=== PATIENT | male | born 1965 | race Caucasian/White ===

== ENCOUNTER 2023-10-26 14:47 | Outpatient (CLI) | payer MEDICARE, MEDICAID | END 2023-10-26 23:59 | disposition home or self-care (01) | LOC: RAD 14:47 | PROVIDERS: ATTEND Family Medicine | DX: Z12.2 Encounter for screening for malignant neoplasm of respiratory organs (principal); J30.9 Allergic rhinitis, unspecified; R73.03 Prediabetes; I25.10 Atherosclerotic heart disease of native coronary artery without angina pectoris; Z90.49 Acquired absence of other specified parts of digestive tract; Z87.891 Personal history of nicotine dependence | CPT/HCPCS: 71271 ==

== ENCOUNTER 2025-01-06 14:34 | Emergency (ER) | payer MEDICARE, MEDICAID ==
[~2025-01-06] VITALS: Ht 179.1 cm; Wt 98.2 kg
[2025-01-06 14:44] VITALS: TEMP 98
--- NOTE | 2025-01-06 14:52 | ELECTROCARDIOGRAPH REPORT ---
[facility] Test Date: 2025-01-06 Test Time: 14:51:00 Pat Name: KHADRA PRATER Department: [facility]- Patient ID: [facility]-[id number] Room: Gender: M [facility]: : 1965 Requested By: PRAVEEN BROWN Order Number: [id number] Reading MD: Measurements Intervals [place] Rate: 75 P: 58 IA: 198 QRS: 60 QRSD: 96 T: 42 QT: 358 QTc: 400 Interpretive Statements Sinus rhythm Please click the below link to view image of tracing.
--- NOTE | 2025-01-06 15:11 | RADIOLOGY REPORT ---
CHEST RADIOGRAPH Indication: CP Technique: DI CHEST,SINGLE VIEW Comparison: None FINDINGS: The cardiac silhouette is unremarkable. The lungs demonstrate no pulmonary airspace consolidation. The pulmonary vasculature is unremarkable. There is no pleural effusion. There is no pneumothorax. IMPRESSION: No pulmonary airspace consolidation.
[2025-01-06 15:35] LABS: MEAN PLATELET VOLUME 7.7 FL (7.4-10.4); RED CELL DISTRIBUTION WIDTH 12.9 % (11.5-14.5)
[2025-01-06 15:49] LABS: CREATININE 0.92 MG/DL (0.60-1.10); TOTAL CARBON DIOXIDE 28.5 MMOL/L (24-32); eCRCL 91 ML/MIN; eGFR 84 ML/MIN
[2025-01-06 16:23] LABS: PRO BRAIN NATRIURETIC PEPTIDE < 30 PG/ML (0-125)
[2025-01-06 17:40] VITALS: BP 144/75; PULSE 69; RESP 18; O2SAT 99
--- NOTE | 2025-01-06 17:50 | Physician Documentation ---
History of Present Illness ~ Chief Complaint: Chest Pain Stated Complaint: CHEST PAIN Time Seen by MD: 17:43 HPI 59-year-old male presents to the ED with a complaint of left-sided sharp chest pain. He denies any alleviating or exacerbating factors. States this same while sitting up or standing down. Denies any shortness of breath or nausea or vomiting. He also denies any history of cardiac problems. 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 That he has a some issues with anxiety. He states the pain is not worse when breathing in. Day of Onset: Jan 06, 2025 Allergies: Coded Allergies: nickel (Unverified Allergy, Unknown, 01/06/25) Active Prescriptions See Medication Reconciliation Form. Review of Systems All Other Systems at this time: Reviewed and Negative ROS As stated above in the HPI, otherwise all systems are reviewed and negative. Physical Exam Vital Signs: Temperature: 98.0, Source: Temporal, Heart Rate: 69, Respiratory Rate: 18, BP: 144/75, Pulse Oximetry: 99, Weight: 98.200 Oxygen Flow Rate: 0 Physical Exam General: Alert, no apparent distress. Respiratory: Lungs clear, no respiratory distress. Chest: No accessory muscle use. Cardiovascular: Regular rate and rhythm, no murmurs. Gastrointestinal: Soft, nontender, nondistended. Bowels sounds present. Neurologic: Oriented x4. Psychiatric: Normal mood and affect. Skin: Normal color, warm and dry. No edema, no ecchymosis. Progress Results/Orders Results/Orders Vital Signs 01/06/25 01/06/25 14:44 17:40 Temp 98.0 Pulse 81 69 Resp 18 18 B/P (MAP) 133/83 144/75 (98) Pulse Ox 98 99 O2 Flow Rate 0 0 Laboratory Tests Test 01/06/25 15:11 01/06/25 16:53 White Blood Count 11.0 Red Blood Count 5.27 Hemoglobin 15.6 Hematocrit 46.1 Mean Corpuscular Volume 87.5 Mean Corpuscular Hemoglobin 29.7 Mean Corpuscular Hemoglobin Concent 33.9 Red Cell Distribution Width 12.9 Platelet Count 310 Mean Platelet Volume 7.7 Neutrophils (%) (Auto) 71.7 Lymphocytes (%) (Auto) 17.5 L Monocytes (%) (Auto) 9.3 Eosinophils (%) (Auto) 0.9 Basophils (%) (Auto) 0.6 Neutrophils # (Auto) 7.9 H Lymphocytes # (Auto) 1.9 Monocytes # (Auto) 1.0 H Eosinophils # (Auto) 0.1 Basophils # (Auto) 0.1 CBC Comment Sodium Level 139 Potassium Level 4.7 Chloride Level 104 Carbon Dioxide Level 28.5 Anion Gap 7 L Blood Urea Nitrogen 21 H Creatinine 0.92 Estimated GFR/1.73 m2 84 BUN/Creatinine Ratio 22.8 H Glucose Level 106 H Calcium Level 9.7 Total Bilirubin 0.3 Aspartate Amino Transf (AST/SGOT) 33 Alanine Aminotransferase (ALT/SGPT) 45 Alkaline Phosphatase 143 H Troponin I High Sensitivity 6 7 Pro-B-Type Natriuretic Peptide < 30 Total Protein 8.1 Albumin 3.6 Globulin 4.5 H Albumin/Globulin Ratio 0.8 L Chemistry Comments Troponin I High Sens Percent Delta 16 Troponin I Hi Sens Absolute Change 1 Medical Decision Making Findings Was not evaluated for potential cardiac event. In his labs were unremarkable for any infectious process in his two troponins were negative for any elevations. I re-evaluated the patient in triage and I discussed all the possible etiologies that could be causing his symptoms. It does not present tachycardic or with a fever. Does not present with any concerns of the pulmonary embolism. Shifts her chest x-ray was unremarkable. I discussed with him that there is a possibility that anxiety he is attributing to his symptoms. This knowledge history of anxiety and. I offered her starting him on hydroxyzine at night because he reports having difficulty sleeping.. tOld him to try hydroxyzine and return to the ED for any worsening symptoms Differential Dx:Considerations: Include: Chest wall contusion, Flail chest, Myocardial contusion, Pneumothorax, Pulmonary contusion, Rib fracture, Renal contusion, Splenic fracture, Tension pneumothorax, Other Departure Disposition: HOME / SELF CARE / HOMELESS Impression: Primary Impression: Chest pain Additional Impression: Chest wall pain Condition: Stable Discharge Instructions: Managing Anxiety, Adult, Nonspecific Chest Pain, Adult Referrals: NO PRIMARY CARE PROVIDER (PCP) Prescriptions Hydroxyzine Hcl* (Atarax*) 25 Mg Tablet 1 TAB PO Q12H for anxiety for 30 Days, #60 TAB Prov: EDDIE LEONARD STAKING PRESS OPERATOR 01/06/25 Education Educated: Patient Educated regarding: diagnosis Signature Scribe Signature: trixie Attestation: Scribed for Eddie Leonard Hose Tubing Backer by Eddie Victor NP . 01/06/25 17:51 EDDIE LEONARD NP Jan 06, 2025 17:50
[2025-01-06] MEDS ORDERED: HYDR-3686 PO (17:51)
== END 2025-01-06 18:10 | disposition home or self-care (01) ==
LOC: ER 14:35
DX: R07.89 Other chest pain (principal); F41.9 Anxiety disorder, unspecified; Z88.8 Allergy status to other drugs, medicaments and biological substances
CPT/HCPCS: 36415; 71045; 80053; 83880; 84484; 85025; 93005; 99285